=== PATIENT | male | born 1995 | race African-American/Black ===

== ENCOUNTER 2021-07-25 12:17 | Emergency (ER) | payer OTHER ==
[~2021-07-25] VITALS: Ht 185.4 cm; Wt 152.0 kg
[2021-07-25 12:31] VITALS: BP 169/79
--- NOTE | 2021-07-25 12:40 | NUR ---
BIBS FOR C/O R FOOT PAIN 01/09 SINCE FRIDAY, DENIES ANY INJURY. WILL CONTINUE TO MONITOR THE PATIENT.
[2021-07-25] MEDS ORDERED: HYDROCODONE/APAP 5/325MG TABLET PO ONE (13:30)
[2021-07-25] MEDS ORDERED: IBUPROFEN 400 MG TABLET PO ONE (13:30)
[2021-07-25] MEDS ORDERED: HYDROCODONE/APAP 5/325MG TABLET ONE (13:31)
[2021-07-25] MEDS ORDERED: IBUPROFEN 400 MG TABLET ONE (13:32)
[2021-07-25] MEDS ORDERED: IBUP-1957 PO (13:43)
[2021-07-25] MEDS ORDERED: CEPH500C2 PO (13:43)
--- NOTE | 2021-07-25 13:50 | NUR ---
Patient discharged to home in stable condition. Written and verbal after care instructions given. Patient verbalizes understanding of instruction.
== END 2021-07-25 13:50 | disposition home or self-care (01) ==
LOC: ER 12:23
DX: L03.115 Cellulitis of right lower limb (principal); E66.01 Morbid (severe) obesity due to excess calories; Z68.41 Body mass index [BMI] 40.0-44.9, adult
CPT/HCPCS: 73630-TC